=== PATIENT | female | born 1990 | race African-American/Black ===

== ENCOUNTER 2017-04-29 21:15 | Emergency (ER) | payer OTHER | END 2017-04-29 23:12 | disposition left against medical advice (07) | LOC: ER 22:53 | DX: R10.9 Unspecified abdominal pain (principal); Z53.21 Procedure and treatment not carried out due to patient leaving prior to being seen by health care provider ==

== ENCOUNTER 2017-09-28 15:06 | Emergency (ER) | payer OTHER ==
[~2017-09-28] VITALS: Ht 157.5 cm; Wt 54.0 kg
[2017-09-28] MEDS ORDERED: KETOROLAC 60MG/2ML VIAL IM ONE (21:30)
[2017-09-28 21:45] VITALS: BP 110/56
[2017-09-28] MEDS ORDERED: KETOROLAC 60MG/2ML VIAL IM NR (21:45)
[2017-09-28] MEDS ORDERED: KETOROLAC 60MG/2ML VIAL IM SCH (22:30)
== END 2017-09-28 23:27 | disposition home or self-care (01) ==
LOC: ER 15:06
DX: M25.512 Pain in left shoulder (principal)
CPT/HCPCS: 73030; 96372; 99284; A4565

== ENCOUNTER 2019-06-20 09:15 | Emergency (ER) | payer OTHER ==
[~2019-06-20] VITALS: Ht 152.4 cm; Wt 59.0 kg
[2019-06-20 09:16] VITALS: BP 126/89
== END 2019-06-20 11:18 | disposition left against medical advice (07) ==
LOC: ER 09:31
DX: S01.01XA Laceration without foreign body of scalp, initial encounter (principal); W22.09XA Striking against other stationary object, initial encounter; Y07.03 Male partner, perpetrator of maltreatment and neglect; Y93.89 Activity, other specified; Y92.89 Other specified places as the place of occurrence of the external cause
CPT/HCPCS: 99281